=== PATIENT | male | born 2000 | race Caucasian/White ===

== ENCOUNTER 2020-07-19 21:32 | Emergency (ER) | payer OTHER ==
[~2020-07-19] VITALS: Ht 182.9 cm; Wt 61.3 kg
[2020-07-19 21:45] VITALS: BP 138/76
--- NOTE | 2020-07-19 22:11 | PHYS DOC ---
Past History Past Medical History: No Pertinent History Past Surgical History: No Surgical History Alcohol Use: None Adult General Chief Complaint Chief Complaint: LACERATION/AVULSION HPI HPI Patient is an otherwise healthy 20-year-old male who presents with right thumb laceration. States he was at work, and cut his finger on a piece of brand-new sheet-metal. States he is not up-to-date on his tetanus vaccination. Denies any other injuries. Review of Systems Review of Systems Review of systems otherwise unremarkable except noted in HPI Current Medications Current Medications Current Medications Medications (Trade) Dose Ordered Sig/Skyla Start Time Stop Time Status Last Admin Dose Admin Diphtheria/ Pertussis/Tetanus Vacc (ADACEL TDap SYRINGE) 0.5 ml ONCE ONCE 07/19/20 22:15 07/19/20 22:16 UNV Allergies Allergies Allergies Coded Allergies Type Severity Reaction Last Updated Verified No Known Drug Allergies 07/19/20 No Physical Exam Physical Exam Constitutional: Well developed, well nourished, no acute distress, non-toxic appearance. [] Skin: Warm, dry, no erythema, no rash. [] Extremities: Patient has an approximately 1.5 cm linear laceration, superficial on the pad of the right thumb. Bleeding controlled. Neurovascular exam intact. Neurologic: Alert and oriented X 3, normal motor function, normal sensory functi on, no focal deficits noted. [] Psychologic: Affect normal, judgement normal, mood normal. [] Current Patient Data Vital Signs Vital Signs Date Time Temp Pulse Resp B/P (MAP) Pulse Ox O2 Delivery O2 Flow Rate FiO2 07/19/20 21:45 97.9 80 18 138/76 (96) 99 Room Air EKG EKG [] Radiology/Procedures Radiology/Procedures [] Heart Score Risk Factors: Risk Factors: DM, Current or recent (<one month) smoker, HTN, HLP, family history of CAD, obesity. Risk Scores: Risk Factors: DM, Current or recent (<one month) smoker, HTN, HLP, family history of CAD, obesity. Course & Med Decision Making Course & Med Decision Making Patient is a 20-year-old male who presents with thumb laceration Vital signs not concerning. Physical exam noted above. Patient updated on tetanus. Cleaned wound. Dermabond repair. No need for sutures. Advised on wound care. Advised to follow-up with primary care for wound check. Started on Keflex in the ED. Advised to come back to the ED with new or concerning symptoms. Patient grateful, verbalized understanding and agreed with plan of discharge. [] Dragon Disclaimer Dragon Disclaimer This electronic medical record was generated, in whole or in part, using a voice recognition dictation system. Departure Departure: Impression: Primary Impression: Laceration Disposition: 01 DC HOME SELF CARE/HOMELESS Condition: GOOD Referrals: BINDU COOPER (PCP) Patient Instructions: Fingertip Laceration Additional Instructions: Please read the attached information. Please take your antibiotics as prescribed. You can use Tylenol, ibuprofen and ice as needed. Please refrain f rom using your thumb over the next couple of days, even at work. You are given a work note for this. Please follow-up with your primary care physician sometime next week and set up an appointment for a wound check. Please come back to the ED with new or concerning symptoms. Scripts Cephalexin (CEPHALEXIN) 500 Mg Capsule 1 CAP PO TID for laceration for 3 Days, #9 CAP Prov: LATASHA AGUIRRE MD 07/19/20 LATASHA AGUIRRE MD Jul 19, 2020 22:11
[2020-07-19] MEDS ORDERED: DIPH,PERTUSS(ACELL),TET VAC/PF 0.5 ML SYRINGE. VAX IM ONE (22:15)
[2020-07-19] MEDS ORDERED: CEPH500C PO (22:19)
== END 2020-07-19 22:38 | disposition home or self-care (01) ==
LOC: ER 21:32
DX: S61.011A Laceration without foreign body of right thumb without damage to nail, initial encounter (principal); W26.8XXA Contact with other sharp object(s), not elsewhere classified, initial encounter; Y93.89 Activity, other specified; Y92.89 Other specified places as the place of occurrence of the external cause; Y99.8 Other external cause status
CPT/HCPCS: 12001; 90471; 90715; 99283